=== PATIENT | female | born 2000 | race Caucasian/White ===

== ENCOUNTER 2022-02-15 00:40 | Emergency (ER) | payer MEDICAID | END 2022-02-15 02:00 | disposition left against medical advice (07) | LOC: ER 00:40 | DX: R51.9 Headache, unspecified (principal); Z53.21 Procedure and treatment not carried out due to patient leaving prior to being seen by health care provider ==

== ENCOUNTER 2022-02-17 06:41 | Emergency (ER) | payer MEDICAID ==
[~2022-02-17] VITALS: Ht 165.1 cm; Wt 68.0 kg
--- NOTE | 2022-02-17 07:43 | NUR ---
Dr. Chacon bedside for assessment.
[2022-02-17] MEDS ORDERED: SUMAtriptan succ. 6 MG/0.5ml vial SQ ONE (08:00)
--- NOTE | 2022-02-17 08:55 | NUR ---
Pt sitting up in bed. Medication administered. 2LNC applied. Registration bedside.
[2022-02-17] MEDS ORDERED: iohexol 350MG/ML 100ml bottle IV ONE (10:04)
[2022-02-17 10:17] LABS: HCG SERUM QL NEGATIVE
--- NOTE | 2022-02-17 10:25 | NUR ---
Pt sitting bedside. Denies pain.
--- NOTE | 2022-02-17 10:27 | NUR ---
Pt taken to CT via WC.
[2022-02-17 12:04] VITALS: BP 108/84
[2022-02-17] MEDS ORDERED: VERA40TA5 PO (12:45)
== END 2022-02-17 12:49 | disposition home or self-care (01) ==
LOC: ER 06:42
DX: G44.009 Cluster headache syndrome, unspecified, not intractable (principal); F12.90 Cannabis use, unspecified, uncomplicated
CPT/HCPCS: 36415; 70496; 84703; 96372; 99285; J3030; J3490; Q9967